=== PATIENT | female | born 1945 | race African-American/Black ===

== ENCOUNTER 2019-01-30 14:49 | Inpatient (IN) | payer MEDICARE, OTHER ==
[~2019-01-30] VITALS: Ht 167.6 cm; Wt 60.3 kg
[2019-01-30 18:44] LABS: BASOPHILS % 1.3 % (0.0-2.0); EOSINOPHILS % 1.5 % (0.0-5.0); HEMATOCRIT. 42.7 % (36.0-48.0); HEMOGLOBIN. 14.3 g/dL (12.0-16.0); LYMPHOCYTES % 23.9 % (20.0-50.0); MEAN CORPUSCULAR HEMOGLOBIN 31.4 pg (28.0-32.0); MEAN CORPUSCULAR VOLUME 93.7 fL (81.0-99.0); MONOCYTES % 10.8 % (2.0-8.0); NEUTROPHILS % 62.5 % (40.0-76.0); PLATELET 416 x1000/uL (130-400); RED BLOOD CELL COUNT 4.56 mill/uL (4.2-5.4)
[2019-01-30] MEDS ORDERED: MORPHINE SULFATE 4 MG/ML CPJ (NOT FOR IM USE) IV ONE ×2 (18:45→20:00)
[2019-01-30 18:51] LABS: CHLORIDE 113 mEq/L (98-107)
[2019-01-30] MEDS ORDERED: HYDROCODONE/ACETAMINOPHEN 10/325MG TABLET PO PRN (23:45)
[2019-01-31] VITALS (7 sets, daily range): BP systolic 124–203; BP diastolic 82–116
[2019-01-31] MEDS ORDERED: MAGNESIUM/ALUMINUM HYDROXIDE/SIMETHICONE 30ML UDC PO PRN (00:30)
[2019-01-31] MEDS ORDERED: CLONIDINE 0.1MG TABLET PO PRN (00:30)
[2019-01-31] MEDS ORDERED: ACETAMINOPHEN 650MG SUPP PR PRN (00:30)
[2019-01-31] MEDS ORDERED: IPRATROPIUM/ALBUTEROL 0.5-3(2.5)MG/3ML NEB INH PRN (00:30)
[2019-01-31] MEDS ORDERED: NA PHOS,M-B/NA PHOS,DI-BA ENEMA 118ML PR PRN (00:30)
[2019-01-31] MEDS ORDERED: ACETAMINOPHEN 325MG TABLET PO PRN (00:30)
[2019-01-31] MEDS ORDERED: HYDROCODONE/ACETAMINOPHEN 5/325MG TABLET PO PRN (00:30)
[2019-01-31] MEDS ORDERED: DOCUSATE SODIUM 100MG CAPSULE PO PRN (00:30)
[2019-01-31] MEDS ORDERED: DIPHENHYDRAMINE 50MG/ML VIAL IV PRN (00:30)
[2019-01-31] MEDS ORDERED: ONDANSETRON HCL 4MG/2ML INJ IV PRN (00:30)
[2019-01-31] MEDS ORDERED: ACETAMINOPHEN 650MG/20.3ML UDC GT PRN (00:30)
[2019-01-31 02:33] LABS: PROTHROMBIN TIME 10.4 sec (9.6-11.0)
[2019-01-31] MEDS: SODIUM CHLORIDE 0.9% INJ 3ML FLUSH IVF SCH ×3 (07:06→20:46)
[2019-01-31] MEDS: SODIUM CHLORIDE 0.45% 1,000 ML IV SCH ×2 (07:24→18:56)
[2019-01-31 07:46] LABS: CREATINE KINASE MB FRACTION 10.3 ng/mL (0.5-3.6)
[2019-01-31] MEDS ORDERED: AMLODIPINE 10MG TABLET PO SCH (08:45)
[2019-01-31] MEDS: ENOXAPARIN 40MG/0.4ML SYR SUBCUT SCH (08:57)
[2019-01-31 09:29] LABS: T4 FREE 1.17 ng/dL (0.76-1.46)
[2019-01-31] MEDS ORDERED: LOSARTAN POTASSIUM 50 MG TABLET PO SCH (11:30)
[2019-01-31] MEDS: HYDRALAZINE HCL 50MG TABLET PO SCH ×2 (14:01→20:46)
[2019-01-31 17:07] LABS: CREATINE KINASE MB FRACTION 5.4 ng/mL (0.5-3.6)
[2019-01-31 17:18] LABS: CREATINE KINASE 1192 IU/L (26-192)
[2019-01-31] MEDS: CARVEDILOL 3.125 MG TABLET PO SCH (20:45)
[2019-01-31] MEDS ORDERED: IOHEXOL-350 100 ML BOTTLE ONE (22:04)
[2019-01-31 23:03] LABS: *AMPHETAMINES SCREEN URINE NEGATIVE (NEGATIVE); *BARBITURATES SCREEN URINE NEGATIVE (NEGATIVE); *BENZODIAZEPINES SCREEN URINE NEGATIVE (NEGATIVE); *COCAINE SCREEN URINE NEGATIVE (NEGATIVE); METHADONE URINE SCREEN NEGATIVE (NEGATIVE)
[2019-01-31 23:04] LABS: CANNABINOID URINE SCREEN NEGATIVE (NEGATIVE); OPIATES URINE SCREEN PRESUMTIVE POSITIVE (NEGATIVE); PHENCYCLIDINE URINE SCREEN NEGATIVE (NEGATIVE)
[2019-01-31 23:05] LABS: CLARITY URINE CLEAR (CLEAR); COLOR URINE YELLOW (YELLOW); KETONES URINE NEGATIVE (NEGATIVE); LEUKOCYTE ESTERASE URINE NEGATIVE (NEGATIVE); NITRITE URINE NEGATIVE (NEGATIVE); OCCULT BLOOD URINE NEGATIVE (NEGATIVE); PH URINE 6.5 (4.5-8.0); PROTEIN URINE 1+ (NEGATIVE); SPECIFIC GRAVITY URINE >1.040 (1.005-1.030)
[2019-02-01] VITALS: BP 114/69
[2019-02-01 04:00] VITALS: BP 124/75
[2019-02-01] MEDS: MORPHINE SULFATE 4 MG/ML CPJ (NOT FOR IM USE) IV PRN ×2 (04:24→14:53)
[2019-02-01] MEDS: HYDRALAZINE HCL 50MG TABLET PO SCH ×2 (06:00→17:06)
[2019-02-01 06:37] LABS: BASOPHILS % 0.6 % (0.0-2.0); EOSINOPHILS % 2.7 % (0.0-5.0); HEMATOCRIT. 36.1 % (36.0-48.0); HEMOGLOBIN. 12.3 g/dL (12.0-16.0); LYMPHOCYTES % 24.4 % (20.0-50.0); MEAN CORPUSCULAR HEMOGLOBIN 31.9 pg (28.0-32.0); MEAN CORPUSCULAR VOLUME 93.3 fL (81.0-99.0); MEAN PLATELET VOLUME 8.2 fl (7.4-10.4); MONOCYTES % 10.9 % (2.0-8.0); NEUTROPHILS % 61.4 % (40.0-76.0); PLATELET 382 x1000/uL (130-400); RED BLOOD CELL COUNT 3.87 mill/uL (4.2-5.4); RED CELL DISTRIBUTION WIDTH 14.2 % (11.6-14.6)
[2019-02-01] MEDS: SODIUM CHLORIDE 0.9% INJ 3ML FLUSH IVF SCH ×2 (06:47→17:07)
[2019-02-01] MEDS: SODIUM CHLORIDE 0.45% 1,000 ML IV SCH (07:20)
[2019-02-01 07:21] LABS: CHLORIDE 107 mEq/L (98-107)
[2019-02-01 07:29] LABS: LDL CHOLESTEROL 99 mg/dL (5-100)
[2019-02-01 07:30] LABS: HDL CHOLESTEROL 51 mg/dL (40-59)
[2019-02-01 08:00] VITALS: BP 111/66
[2019-02-01] MEDS ORDERED: AMLODIPINE 10MG TABLET PO SCH (09:00)
[2019-02-01] MEDS: ENOXAPARIN 40MG/0.4ML SYR SUBCUT SCH (09:00)
[2019-02-01] MEDS ORDERED: ASPIRIN 81MG TABLET PO SCH (09:00)
[2019-02-01] MEDS: CARVEDILOL 3.125 MG TABLET PO SCH (09:00)
[2019-02-01] MEDS ORDERED: SODIUM CHLORIDE 0.9% 1,000 ML IV SCH (09:15)
[2019-02-01] MEDS ORDERED: REGADENOSON 0.4 MG/5 ML IV ONE ×2 (11:15→12:19)
[2019-02-01 12:00] VITALS: BP 148/80
[2019-02-01] MEDS ORDERED: METOPROLOL TARTRATE 5MG/5ML VIAL IV ONE (12:30)
[2019-02-01] MEDS ORDERED: SODIUM CHLORIDE 0.9% 500 ML IV ONE (12:45)
[2019-02-01] MEDS ORDERED: BACITRACIN 15GM TUBE TOP ONE (13:28)
[2019-02-01] MEDS ORDERED: VANCOMYCIN HCL 500 MG/VIAL ONE (13:28)
[2019-02-01] MEDS ORDERED: ENOXAPARIN 40MG/0.4ML SYR SUBCUT SCH (14:45)
[2019-02-01 16:00] VITALS: BP 149/95
[2019-02-01] MEDS ORDERED: CEFAZOLIN 1000MG PREMIX 50 ML IV SCH (16:30)
[2019-02-01 17:11] VITALS: BP 149/95
== END 2019-02-01 18:55 | disposition short-term general hospital (02) | DRG 534 ==
LOC: ER 14:49 → EDBEDREQ 22:17 → EDBEDREQTM 22:17 → ENRESERV 22:24 → 5WST 01-31 01:32 → CANBEDREQ 01-31 08:16
PROVIDERS: ADMIT Family Medicine; ATTEND Family Medicine
DX: S72.401A Unspecified fracture of lower end of right femur, initial encounter for closed fracture (principal); M62.82 Rhabdomyolysis; F17.210 Nicotine dependence, cigarettes, uncomplicated; I10 Essential (primary) hypertension; Z53.8 Procedure and treatment not carried out for other reasons; W01.0XXA Fall on same level from slipping, tripping and stumbling without subsequent striking against object, initial encounter; Y93.89 Activity, other specified; Y92.89 Other specified places as the place of occurrence of the external cause; Y99.8 Other external cause status
CPT/HCPCS: 36415; 71045; 71275; 73552; 73560; 78452; 80061; 80305; 80320; 82550; 82553; 83036; 83880; 84439; 84443; 84484; 85379; 93005; 93017; 93306; 93970; 96374; 99285; A9500; J0690; J1650; J2270; J2785; J3370; J3490; J7030; L1830; Q9967; G0480